=== PATIENT | male | born 1980 | race Caucasian/White ===

== ENCOUNTER 2021-08-14 12:48 | Inpatient (IN) | payer OTHER ==
[2021-08-14 13:12] VITALS: BMI 35.2
[2021-08-14] MEDS ORDERED: MAGNESIUM CITRATE 300 ML BOTTLE PO PRN (14:50)
[2021-08-14] MEDS ORDERED: MAG HYDROX/AL HYDROX/SIMETH 30 ML UNIT-DOSE CUP PO PRN (14:50)
[2021-08-14] MEDS ORDERED: MAGNESIUM HYDROX 2400MG/30ML ORAL SUSPENSION 30 ML CUP PO PRN (14:50)
[2021-08-14] MEDS ORDERED: guaiFENesin 200 MG/10 ML 10 ML UNIT-DOSE CUPS PO PRN (14:50)
[2021-08-14] MEDS ORDERED: P-EPHED 60MG/TRIPROLIDI 2.5MG TABLET PO PRN (14:50)
[2021-08-14] MEDS ORDERED: LOPERAMIDE HCL 2 MG CAPSULE PO PRN (14:50)
[2021-08-14] MEDS ORDERED: TUBERCULIN PPD 5 TU/0.1ML VIAL ID ONE (21:47)
[2021-08-14] MEDS: THIAMINE HCL 100 MG TABLET (FP) PO SCH (21:49)
[2021-08-14] MEDS: VENLAFAXINE HCL 75 MG E.R. CAPSULES PO SCH (21:49)
[2021-08-14] MEDS: hydrOXYzine PAMOATE 25 MG CAPSULE (FP) PO SCH ×2 (21:49→22:13)
[2021-08-14] MEDS: MELATONIN 5 MG TABLETS PO SCH (21:49)
[2021-08-14] MEDS: GABAPENTIN 300 MG CAPSULE PO SCH (21:50)
[2021-08-14] MEDS ORDERED: ACAMPROSATE CALCIUM 333 MG TABLET.DR PO SCH (22:00)
[2021-08-15] MEDS: IBUPROFEN 400 MG TABLET (FP) PO PRN (02:42)
[2021-08-15] MEDS: hydrOXYzine PAMOATE 25 MG CAPSULE (FP) PO SCH ×5 (06:48→21:54)
[2021-08-15] MEDS: VENLAFAXINE HCL 75 MG E.R. CAPSULES PO SCH (09:12)
[2021-08-15] MEDS: PRENATAL VITAMINS W/ FOLIC ACID TABLET (FP) PO SCH (09:12)
[2021-08-15] MEDS: amLODIPine BESYLATE 5 MG TABLET (FP) PO SCH (09:12)
[2021-08-15 09:56] LABS: HEMATOCRIT 30.9 % (35.4-49); HEMOGLOBIN 10.5 GM/dL (11.7-16.9); MCH 32.9 pg (25.7-33.7); MEAN CELL VOLUME 96.6 fl (80-96); MEAN PLT VOLUME 10.3 fl (7.5-11.1); PLATELET COUNT 80 10^3/uL (134-434); RDW 16.3 % (11.9-15.9); WHITE BLOOD COUNT 6.4 K/mm3 (4.0-10.0)
[2021-08-15] MEDS ORDERED: PALIPERIDONE 9 MG PO SCH (10:00)
[2021-08-15 10:05] LABS: CALCIUM 8.1 mg/dL (8.5-10.1)
[2021-08-15 10:09] LABS: BLOOD UREA NITROGEN 11.1 mg/dL (7-18); CREATININE 0.5 mg/dL (0.55-1.3)
[2021-08-15 10:11] LABS: TOT PROT 6.1 g/dl (6.4-8.2)
[2021-08-15 10:36] LABS: SYPHILIS W/ RPR CONF NON-REACTIVE (NONREACTIVE)
[2021-08-15 10:50] LABS: EPI CELLS 4 /uL (0-25.1); HYALINE CASTS 0 /uL (0-3.1); PH,URINE 7.5 (5.0-8.0); URINE APPEARANCE CLEAR; URINE BACTERIA 9 /uL (0-1359); URINE BILIRUBIN NEGATIVE (NEGATIVE); URINE COLOR YELLOW; URINE GLUCOSE (UA) NEGATIVE (NEGATIVE); URINE KETONE NEGATIVE (NEGATIVE); URINE LEUK ESTERASE NEGATIVE (NEGATIVE); URINE NITRITE NEGATIVE (NEGATIVE); URINE PROTEIN NEGATIVE (NEGATIVE); URINE RBC 101 /uL (0-23.9); URINE WBC 4 /uL (0-25.8)
[2021-08-15] MEDS: risperiDONE 1 MG TABLET PO SCH ×2 (11:30→21:52)
[2021-08-15] MEDS: TOPIRAMATE 25 MG TABLET PO SCH ×2 (14:02→21:52)
[2021-08-15] MEDS: GABAPENTIN 300 MG CAPSULE PO SCH (21:52)
[2021-08-15] MEDS: MELATONIN 5 MG TABLETS PO SCH (21:53)
[2021-08-15] MEDS: THIAMINE HCL 100 MG TABLET (FP) PO SCH (21:53)
[2021-08-15] MEDS: MIRTAZAPINE 15 MG TABLET (FP) PO SCH (21:54)
[2021-08-16] MEDS: IBUPROFEN 400 MG TABLET (FP) PO PRN (00:52)
[2021-08-16] MEDS: hydrOXYzine PAMOATE 25 MG CAPSULE (FP) PO SCH ×5 (06:55→21:45)
[2021-08-16] MEDS: amLODIPine BESYLATE 5 MG TABLET (FP) PO SCH (10:00)
[2021-08-16] MEDS: TOPIRAMATE 25 MG TABLET PO SCH ×2 (10:00→21:45)
[2021-08-16] MEDS: PRENATAL VITAMINS W/ FOLIC ACID TABLET (FP) PO SCH (10:00)
[2021-08-16] MEDS: VENLAFAXINE HCL 75 MG E.R. CAPSULES PO SCH (10:01)
[2021-08-16] MEDS: risperiDONE 1 MG TABLET PO SCH (10:01)
[2021-08-16] MEDS ORDERED: risperiDONE 1 MG TABLET PO ONE (11:00)
[2021-08-16] MEDS: LACTULOSE 20 GM/30 ML UDC (FOR ORAL USE ONLY) PO SCH ×2 (14:41→21:45)
[2021-08-16] MEDS: GABAPENTIN 300 MG CAPSULE PO SCH (21:45)
[2021-08-16] MEDS: THIAMINE HCL 100 MG TABLET (FP) PO SCH (21:45)
[2021-08-16] MEDS: MELATONIN 5 MG TABLETS PO SCH (21:45)
[2021-08-16] MEDS: MIRTAZAPINE 15 MG TABLET (FP) PO SCH (21:45)
[2021-08-16] MEDS: risperiDONE 2 MG TABLET PO SCH (21:46)
[2021-08-17] MEDS: IBUPROFEN 400 MG TABLET (FP) PO PRN ×2 (04:23→13:38)
[2021-08-17] MEDS: LACTULOSE 20 GM/30 ML UDC (FOR ORAL USE ONLY) PO SCH ×3 (06:36→21:17)
[2021-08-17] MEDS: hydrOXYzine PAMOATE 25 MG CAPSULE (FP) PO SCH ×5 (06:37→21:18)
[2021-08-17] MEDS: FERROUS SO4 325 MG TABLET (FP) PO SCH (09:51)
[2021-08-17] MEDS: amLODIPine BESYLATE 5 MG TABLET (FP) PO SCH (09:51)
[2021-08-17] MEDS: TOPIRAMATE 25 MG TABLET PO SCH ×2 (09:51→21:18)
[2021-08-17] MEDS: risperiDONE 2 MG TABLET PO SCH ×2 (09:51→21:18)
[2021-08-17] MEDS: PRENATAL VITAMINS W/ FOLIC ACID TABLET (FP) PO SCH (09:51)
[2021-08-17] MEDS: VENLAFAXINE HCL 75 MG E.R. CAPSULES PO SCH (09:52)
[2021-08-17] MEDS: THIAMINE HCL 100 MG TABLET (FP) PO SCH (21:18)
[2021-08-17] MEDS: MIRTAZAPINE 15 MG TABLET (FP) PO SCH (21:18)
[2021-08-17] MEDS: MELATONIN 5 MG TABLETS PO SCH (21:18)
[2021-08-17] MEDS: GABAPENTIN 300 MG CAPSULE PO SCH (21:18)
[2021-08-18] MEDS: IBUPROFEN 400 MG TABLET (FP) PO PRN ×2 (05:06→15:53)
[2021-08-18] MEDS: hydrOXYzine PAMOATE 25 MG CAPSULE (FP) PO SCH ×5 (05:08→21:30)
[2021-08-18] MEDS: LACTULOSE 20 GM/30 ML UDC (FOR ORAL USE ONLY) PO SCH ×3 (05:08→21:30)
[2021-08-18] MEDS: PRENATAL VITAMINS W/ FOLIC ACID TABLET (FP) PO SCH (10:09)
[2021-08-18] MEDS: TOPIRAMATE 25 MG TABLET PO SCH ×2 (10:09→21:30)
[2021-08-18] MEDS: FERROUS SO4 325 MG TABLET (FP) PO SCH (10:09)
[2021-08-18] MEDS: risperiDONE 2 MG TABLET PO SCH ×2 (10:09→21:30)
[2021-08-18] MEDS: amLODIPine BESYLATE 5 MG TABLET (FP) PO SCH (10:09)
[2021-08-18] MEDS: VENLAFAXINE HCL 75 MG E.R. CAPSULES PO SCH (10:09)
[2021-08-18] MEDS: LIDOCAINE 5% TOPICAL PATCH TP SCH (12:42)
[2021-08-18] MEDS: MIRTAZAPINE 15 MG TABLET (FP) PO SCH (21:30)
[2021-08-18] MEDS: THIAMINE HCL 100 MG TABLET (FP) PO SCH (21:30)
[2021-08-18] MEDS: MELATONIN 5 MG TABLETS PO SCH (21:30)
[2021-08-18] MEDS: GABAPENTIN 300 MG CAPSULE PO SCH (21:30)
[2021-08-18] MEDS: LIDOCAINE PATCH REMOVAL MC SCH (21:31)
[2021-08-19] MEDS: hydrOXYzine PAMOATE 25 MG CAPSULE (FP) PO SCH ×5 (06:35→21:08)
[2021-08-19] MEDS: IBUPROFEN 400 MG TABLET (FP) PO PRN ×2 (06:35→13:12)
[2021-08-19] MEDS: LACTULOSE 20 GM/30 ML UDC (FOR ORAL USE ONLY) PO SCH ×3 (06:35→21:08)
[2021-08-19] MEDS: amLODIPine BESYLATE 5 MG TABLET (FP) PO SCH (10:01)
[2021-08-19] MEDS: TOPIRAMATE 25 MG TABLET PO SCH ×2 (10:01→21:09)
[2021-08-19] MEDS: LIDOCAINE 5% TOPICAL PATCH TP SCH (10:01)
[2021-08-19] MEDS: FERROUS SO4 325 MG TABLET (FP) PO SCH (10:01)
[2021-08-19] MEDS: risperiDONE 2 MG TABLET PO SCH ×2 (10:01→21:08)
[2021-08-19] MEDS: PRENATAL VITAMINS W/ FOLIC ACID TABLET (FP) PO SCH (10:01)
[2021-08-19] MEDS: VENLAFAXINE HCL 75 MG E.R. CAPSULES PO SCH (10:02)
[2021-08-19 10:44] LABS: ALBUMIN 2.2 g/dl (3.4-5.0); BLOOD UREA NITROGEN 10.5 mg/dL (7-18); CALCIUM 8.2 mg/dL (8.5-10.1)
[2021-08-19 10:47] LABS: CREATININE 0.5 mg/dL (0.55-1.3)
[2021-08-19 10:49] LABS: BILIRUBIN,TOTAL 1.6 mg/dL (0.2-1)
[2021-08-19 10:50] LABS: TOT PROT 6.5 g/dl (6.4-8.2)
[2021-08-19] MEDS: GABAPENTIN 300 MG CAPSULE PO SCH (21:08)
[2021-08-19] MEDS: MELATONIN 5 MG TABLETS PO SCH (21:08)
[2021-08-19] MEDS: THIAMINE HCL 100 MG TABLET (FP) PO SCH (21:08)
[2021-08-19] MEDS: MIRTAZAPINE 15 MG TABLET (FP) PO SCH (21:08)
[2021-08-19] MEDS: LIDOCAINE PATCH REMOVAL MC SCH (21:09)
[2021-08-20] MEDS: IBUPROFEN 400 MG TABLET (FP) PO PRN ×3 (00:48→22:07)
[2021-08-20] MEDS: LACTULOSE 20 GM/30 ML UDC (FOR ORAL USE ONLY) PO SCH ×5 (06:21→22:05)
[2021-08-20] MEDS: hydrOXYzine PAMOATE 25 MG CAPSULE (FP) PO SCH ×5 (06:21→22:06)
[2021-08-20] MEDS: amLODIPine BESYLATE 5 MG TABLET (FP) PO SCH (10:21)
[2021-08-20] MEDS: TOPIRAMATE 25 MG TABLET PO SCH ×2 (10:22→22:06)
[2021-08-20] MEDS: PRENATAL VITAMINS W/ FOLIC ACID TABLET (FP) PO SCH (10:22)
[2021-08-20] MEDS: LIDOCAINE 5% TOPICAL PATCH TP SCH (10:22)
[2021-08-20] MEDS: FERROUS SO4 325 MG TABLET (FP) PO SCH (10:22)
[2021-08-20] MEDS: VENLAFAXINE HCL 75 MG E.R. CAPSULES PO SCH (10:22)
[2021-08-20] MEDS: risperiDONE 2 MG TABLET PO SCH ×2 (10:22→22:05)
[2021-08-20] MEDS: THIAMINE HCL 100 MG TABLET (FP) PO SCH (22:05)
[2021-08-20] MEDS: MIRTAZAPINE 15 MG TABLET (FP) PO SCH (22:05)
[2021-08-20] MEDS: MELATONIN 5 MG TABLETS PO SCH (22:06)
[2021-08-20] MEDS: GABAPENTIN 300 MG CAPSULE PO SCH (22:06)
[2021-08-20] MEDS: LIDOCAINE PATCH REMOVAL MC SCH (22:06)
[2021-08-21] MEDS: IBUPROFEN 400 MG TABLET (FP) PO PRN ×2 (04:42→13:37)
[2021-08-21] MEDS: hydrOXYzine PAMOATE 25 MG CAPSULE (FP) PO SCH ×5 (06:19→21:49)
[2021-08-21] MEDS: amLODIPine BESYLATE 5 MG TABLET (FP) PO SCH (09:59)
[2021-08-21] MEDS: PRENATAL VITAMINS W/ FOLIC ACID TABLET (FP) PO SCH (09:59)
[2021-08-21] MEDS: LACTULOSE 20 GM/30 ML UDC (FOR ORAL USE ONLY) PO SCH ×4 (09:59→21:51)
[2021-08-21] MEDS: FERROUS SO4 325 MG TABLET (FP) PO SCH (09:59)
[2021-08-21] MEDS: risperiDONE 2 MG TABLET PO SCH ×2 (09:59→21:50)
[2021-08-21] MEDS: VENLAFAXINE HCL 75 MG E.R. CAPSULES PO SCH (09:59)
[2021-08-21] MEDS: TOPIRAMATE 25 MG TABLET PO SCH ×2 (09:59→21:52)
[2021-08-21] MEDS: LIDOCAINE 5% TOPICAL PATCH TP SCH (10:00)
[2021-08-21] MEDS: GABAPENTIN 300 MG CAPSULE PO SCH (21:49)
[2021-08-21] MEDS: MIRTAZAPINE 15 MG TABLET (FP) PO SCH (21:50)
[2021-08-21] MEDS: LIDOCAINE PATCH REMOVAL MC SCH (21:51)
[2021-08-21] MEDS: MELATONIN 5 MG TABLETS PO SCH (21:51)
[2021-08-21] MEDS: THIAMINE HCL 100 MG TABLET (FP) PO SCH (21:52)
[2021-08-22] MEDS: IBUPROFEN 400 MG TABLET (FP) PO PRN ×2 (01:11→08:49)
[2021-08-22] MEDS: hydrOXYzine PAMOATE 25 MG CAPSULE (FP) PO SCH ×5 (05:56→21:51)
[2021-08-22] MEDS: PRENATAL VITAMINS W/ FOLIC ACID TABLET (FP) PO SCH (10:07)
[2021-08-22] MEDS: amLODIPine BESYLATE 5 MG TABLET (FP) PO SCH (10:07)
[2021-08-22] MEDS: risperiDONE 2 MG TABLET PO SCH ×2 (10:07→21:51)
[2021-08-22] MEDS: VENLAFAXINE HCL 75 MG E.R. CAPSULES PO SCH (10:08)
[2021-08-22] MEDS: TOPIRAMATE 25 MG TABLET PO SCH ×2 (10:08→21:51)
[2021-08-22] MEDS: LIDOCAINE 5% TOPICAL PATCH TP SCH (10:08)
[2021-08-22] MEDS: LACTULOSE 20 GM/30 ML UDC (FOR ORAL USE ONLY) PO SCH ×4 (10:08→21:52)
[2021-08-22] MEDS: FERROUS SO4 325 MG TABLET (FP) PO SCH (10:08)
[2021-08-22] MEDS: MIRTAZAPINE 15 MG TABLET (FP) PO SCH (21:51)
[2021-08-22] MEDS: GABAPENTIN 300 MG CAPSULE PO SCH (21:51)
[2021-08-22] MEDS: THIAMINE HCL 100 MG TABLET (FP) PO SCH (21:52)
[2021-08-22] MEDS: MELATONIN 5 MG TABLETS PO SCH (21:52)
[2021-08-22] MEDS: LIDOCAINE PATCH REMOVAL MC SCH (21:52)
[2021-08-23] MEDS: IBUPROFEN 400 MG TABLET (FP) PO PRN ×3 (00:56→19:26)
[2021-08-23] MEDS: hydrOXYzine PAMOATE 25 MG CAPSULE (FP) PO SCH ×2 (06:02→10:07)
[2021-08-23] MEDS: amLODIPine BESYLATE 5 MG TABLET (FP) PO SCH (10:07)
[2021-08-23] MEDS: PRENATAL VITAMINS W/ FOLIC ACID TABLET (FP) PO SCH (10:07)
[2021-08-23] MEDS: VENLAFAXINE HCL 75 MG E.R. CAPSULES PO SCH (10:07)
[2021-08-23] MEDS: LACTULOSE 20 GM/30 ML UDC (FOR ORAL USE ONLY) PO SCH ×4 (10:07→21:54)
[2021-08-23] MEDS: LIDOCAINE 5% TOPICAL PATCH TP SCH (10:07)
[2021-08-23] MEDS: FERROUS SO4 325 MG TABLET (FP) PO SCH (10:07)
[2021-08-23] MEDS: TOPIRAMATE 25 MG TABLET PO SCH ×2 (10:07→21:57)
[2021-08-23] MEDS: risperiDONE 2 MG TABLET PO SCH ×2 (10:07→21:55)
[2021-08-23] MEDS: LIDOCAINE PATCH REMOVAL MC SCH (21:54)
[2021-08-23] MEDS: GABAPENTIN 300 MG CAPSULE PO SCH (21:54)
[2021-08-23] MEDS: MIRTAZAPINE 15 MG TABLET (FP) PO SCH (21:54)
[2021-08-23] MEDS: THIAMINE HCL 100 MG TABLET (FP) PO SCH (21:56)
[2021-08-23] MEDS: MELATONIN 5 MG TABLETS PO SCH (21:57)
[2021-08-24] MEDS: IBUPROFEN 400 MG TABLET (FP) PO PRN (00:51)
[2021-08-24] MEDS ORDERED: PT OWN MED DRAWER 7, Y5N ONE (06:01)
[2021-08-24 06:58] VITALS: TEMP 99.1
[2021-08-24] MEDS: TOPIRAMATE 25 MG TABLET PO SCH (09:54)
[2021-08-24] MEDS: VENLAFAXINE HCL 75 MG E.R. CAPSULES PO SCH (09:54)
[2021-08-24] MEDS: FERROUS SO4 325 MG TABLET (FP) PO SCH (09:54)
[2021-08-24] MEDS: risperiDONE 2 MG TABLET PO SCH ×2 (09:54→23:55)
[2021-08-24] MEDS: LACTULOSE 20 GM/30 ML UDC (FOR ORAL USE ONLY) PO SCH ×4 (09:54→23:54)
[2021-08-24] MEDS: PRENATAL VITAMINS W/ FOLIC ACID TABLET (FP) PO SCH (09:54)
[2021-08-24] MEDS: LIDOCAINE 5% TOPICAL PATCH TP SCH (09:54)
[2021-08-24] MEDS: amLODIPine BESYLATE 5 MG TABLET (FP) PO SCH (09:54)
[2021-08-24 11:11] LABS: BLOOD UREA NITROGEN 9.8 mg/dL (7-18)
[2021-08-24 11:12] LABS: ALBUMIN 2.4 g/dl (3.4-5.0)
[2021-08-24 11:15] LABS: CREATININE 0.7 mg/dL (0.55-1.3)
[2021-08-24 11:16] LABS: BILIRUBIN,TOTAL 2.1 mg/dL (0.2-1); TOT PROT 6.6 g/dl (6.4-8.2)
[2021-08-24 11:29] LABS: BASO % 0.9 % (0-2.0); EOS % 3.4 % (0-4.5); HEMATOCRIT 31.9 % (35.4-49); HEMOGLOBIN 10.7 GM/dL (11.7-16.9); LYMPH % 19.5 % (8-40); MCH 32.5 pg (25.7-33.7); MCHC 33.6 g/dl (32.0-35.9); MEAN CELL VOLUME 96.9 fl (80-96); MEAN PLT VOLUME 10.1 fl (7.5-11.1); MONO % 7.2 % (3.8-10.2); PLATELET COUNT 77 10^3/uL (134-434); RBC 3.29 M/mm3 (4.00-5.60); RDW 18.1 % (11.9-15.9); WHITE BLOOD COUNT 6.5 K/mm3 (4.0-10.0)
[2021-08-24 11:39] LABS: INR 1.47 (0.83-1.09); PROTHROMBIN TIME (PATIENT) 17.3 SEC (9.7-13.0)
[2021-08-24 11:42] LABS: ACTIVATED PTT 38.2 SECONDS (25.2-36.5)
[2021-08-24 17:43] VITALS: BP 141/89; PULSE 97
[2021-08-24] MEDS ORDERED: MIRTAZAPINE 15 MG TABLET (FP) PO SCH (22:00)
[2021-08-24] MEDS: MELATONIN 5 MG TABLETS PO SCH (23:55)
[2021-08-24] MEDS: LIDOCAINE PATCH REMOVAL MC SCH (23:55)
[2021-08-24] MEDS: GABAPENTIN 300 MG CAPSULE PO SCH (23:55)
[2021-08-24] MEDS: THIAMINE HCL 100 MG TABLET (FP) PO SCH (23:56)
[2021-08-25] MEDS ORDERED: VENLAFAXINE HCL 37.5 MG E.R. CAPSULE PO SCH (10:00)
== END 2021-08-25 05:38 | disposition short-term general hospital (02) | DRG 772 ==
LOC: YASAS 12:48 → Y3W 14:07
PROVIDERS: ADMIT Allergy & Immunology; ATTEND Allergy & Immunology
PROC: HZ42ZZZ Group Counseling for Substance Abuse Treatment, Cognitive-Behavioral (ICD-10-PCS; principal; 2021-08-14)
DX: F10.20 Alcohol dependence, uncomplicated (principal); F32.3 Major depressive disorder, single episode, severe with psychotic features; F10.24 Alcohol dependence with alcohol-induced mood disorder; E72.20 Disorder of urea cycle metabolism, unspecified; G62.9 Polyneuropathy, unspecified; I10 Essential (primary) hypertension; K21.9 Gastro-esophageal reflux disease without esophagitis; K74.60 Unspecified cirrhosis of liver; Z56.0 Unemployment, unspecified; Z59.01 Sheltered homelessness
CPT/HCPCS: 36415; 80053; 81003; 82140; 85025; 85027; 85610; 85730; 86780; 86803; C9803; J2794; U0003; U0005

== ENCOUNTER 2021-08-24 18:36 | Inpatient (IN) | payer BC, OTHER ==
[2021-08-24] MEDS ORDERED: morphine CARPU-JECT 2 MG/1 ML DISP.SYRIN IVPUSH ONE (20:24)
[2021-08-24] MEDS ORDERED: morphine SULFATE 4 MG/ML VIAL ONE (20:39)
[2021-08-24 21:22] LABS: BASO % 0.3 % (0-2.0); EOS % 4.1 % (0-4.5); HEMATOCRIT 31.1 % (35.4-49); HEMOGLOBIN 10.6 GM/dL (11.7-16.9); LYMPH % 14.6 % (8-40); MCH 32.3 pg (25.7-33.7); MCHC 34.2 g/dl (32.0-35.9); MEAN CELL VOLUME 94.7 fl (80-96); MEAN PLT VOLUME 9.5 fl (7.5-11.1); MONO % 11.3 % (3.8-10.2); NEUT % 69.7 % (42.8-82.8); PLATELET COUNT 65 10^3/uL (134-434); RBC 3.29 M/mm3 (4.00-5.60); RDW 18.2 % (11.9-15.9); WHITE BLOOD COUNT 7.7 K/mm3 (4.0-10.0)
[2021-08-24 21:25] LABS: INR 1.49 (0.83-1.09); PROTHROMBIN TIME (PATIENT) 17.5 SEC (9.7-13.0)
[2021-08-24 21:27] LABS: ACTIVATED PTT 35.3 SECONDS (25.2-36.5)
[2021-08-24 21:36] LABS: EPI CELLS 3 /uL (0-25.1); HYALINE CASTS 1 /uL (0-3.1); URINE APPEARANCE CLEAR; URINE BACTERIA 3 /uL (0-1359); URINE BILIRUBIN NEGATIVE (NEGATIVE); URINE COLOR YELLOW; URINE GLUCOSE (UA) NEGATIVE (NEGATIVE); URINE KETONE NEGATIVE (NEGATIVE); URINE LEUK ESTERASE NEGATIVE (NEGATIVE); URINE NITRITE NEGATIVE (NEGATIVE); URINE PROTEIN TRACE (NEGATIVE); URINE RBC 190 /uL (0-23.9); URINE WBC 6 /uL (0-25.8)
[2021-08-24 21:37] LABS: CHLORIDE 116 mmol/L (98-107); SODIUM 144 mmol/L (136-145)
[2021-08-24 21:39] LABS: CALCIUM 8.7 mg/dL (8.5-10.1)
[2021-08-24 21:40] LABS: ALBUMIN 2.5 g/dl (3.4-5.0); ANION GAP 6 MMOL/L (8-16); BLOOD UREA NITROGEN 9.9 mg/dL (7-18); CO2 22 mmol/L (21-32); GLUCOSE,RANDOM 104 mg/dL (74-106); LIPASE 139 U/L (73-393)
[2021-08-24 21:42] LABS: CREATININE 0.5 mg/dL (0.55-1.3)
[2021-08-24 21:43] LABS: PHOSPHOROUS 4.3 mg/dL (2.5-4.9); SGOT/AST 62 U/L (15-37); SGPT/ALT 45 U/L (13-61)
[2021-08-24 21:44] LABS: BILIRUBIN,TOTAL 1.8 mg/dL (0.2-1); TOT PROT 6.7 g/dl (6.4-8.2)
[2021-08-24 21:45] LABS: ALK PHOS 230 U/L (45-117)
[2021-08-25] MEDS ORDERED: SODIUM CHLORIDE 0.9% 500 ML INFUS.BAG IV ONE (01:15)
[2021-08-25] MEDS ORDERED: CIPROFLOXACIN 400 MG/D5W 400 MG/200 ML IVPB IVPB ONE (01:17)
[2021-08-25] MEDS ORDERED: CEFEPIME HCL/D5W 2 GM/50 ML BAG IVPB ONE (01:32)
[2021-08-25] MEDS ORDERED: morphine CARPU-JECT 4 MG/1 ML DISP.SYRIN IVPUSH ONE (01:40)
[2021-08-25] MEDS ORDERED: CEFEPIME 2 GM/100 ML BAG IVPB ONE (01:59)
[2021-08-25] MEDS ORDERED: morphine SULFATE 4 MG/ML VIAL ONE (01:59)
[2021-08-25] MEDS ORDERED: morphine CARPU-JECT 8 MG/1 ML DISP.SYRIN IVPUSH PRN (04:26)
[2021-08-25] MEDS: SODIUM CHLORIDE 1,000 ML IV SCH ×2 (05:00→10:05)
[2021-08-25] MEDS: LACTULOSE 20 GM/30 ML UDC (FOR ORAL USE ONLY) PO SCH ×2 (06:05→13:17)
[2021-08-25] MEDS ORDERED: PNEUMOC 13-VAL CONJ-DIP CRM/PF 0.5 ML DISP.SYRIN IM ONE (06:23)
[2021-08-25 06:43] VITALS: BMI 34.7
[2021-08-25] MEDS: morphine SULFATE 4 MG/ML VIAL IVPUSH PRN ×3 (08:41→21:06)
[2021-08-25 08:53] LABS: BASO % 0.6 % (0-2.0); EOS % 4.7 % (0-4.5); HEMATOCRIT 32.4 % (35.4-49); LYMPH % 20.1 % (8-40); MCH 32.2 pg (25.7-33.7); MCHC 33.9 g/dl (32.0-35.9); MONO % 11.6 % (3.8-10.2); PLATELET COUNT 64 10^3/uL (134-434); RBC 3.42 M/mm3 (4.00-5.60); RDW 18.5 % (11.9-15.9)
[2021-08-25 09:25] LABS: ALBUMIN 2.6 g/dl (3.4-5.0); BLOOD UREA NITROGEN 8.2 mg/dL (7-18); CALCIUM 8.5 mg/dL (8.5-10.1); MAGNESIUM 1.9 mg/dL (1.8-2.4)
[2021-08-25 09:26] LABS: CREATININE 0.5 mg/dL (0.55-1.3)
[2021-08-25 09:28] LABS: BILIRUBIN,TOTAL 2.6 mg/dL (0.2-1); PHOSPHOROUS 3.3 mg/dL (2.5-4.9)
[2021-08-25 09:29] LABS: IRON SERUM 246 ug/dL (50-175)
[2021-08-25 09:30] LABS: TOTAL IRON BINDING CAPACITY 250 ug/dL (250-450)
[2021-08-25] MEDS ORDERED: PIPERACILLIN/TAZOBACTAM 3.375 GM VIAL IVPB ONE ×2 (09:58→17:03)
[2021-08-25] MEDS ORDERED: DEXTROSE 5%-WATER - 50 ML IVPB ONE ×2 (09:58→17:03)
[2021-08-25] MEDS ORDERED: FOLIC ACID 1 MG TABLET (FP) PO SCH (10:00)
[2021-08-25] MEDS ORDERED: PNEUMOCOCCAL 23 VACCINE 0.5 ML VIAL IM ONE (10:00)
[2021-08-25] MEDS ORDERED: THIAMINE HCL 100 MG TABLET (FP) PO SCH (10:00)
[2021-08-25] MEDS ORDERED: GABAPENTIN 300 MG CAPSULE PO SCH (10:00)
[2021-08-25] MEDS: PIPERACILLIN/TAZOB 3.375 GM 3.375 GM in DEXTROSE 5%-WATER - 50 ML IVPB SCH ×2 (10:05→17:49)
[2021-08-25 21:43] VITALS: BP 139/88; PULSE 92; TEMP 98
[2021-08-26] MEDS ORDERED: PIPERACILLIN/TAZOB 3.375 GM 3.375 GM in DEXTROSE 5%-WATER - 50 ML IVPB SCH (10:00)
== END 2021-08-25 21:44 | disposition short-term general hospital (02) | DRG 446 ==
LOC: JER 18:36 → JERBED 08-25 01:26 → J6S 08-25 05:41
PROVIDERS: ADMIT Internal Medicine
DX: K80.00 Calculus of gallbladder with acute cholecystitis without obstruction (principal); K70.30 Alcoholic cirrhosis of liver without ascites; E66.9 Obesity, unspecified; Z68.34 Body mass index [BMI] 34.0-34.9, adult; I10 Essential (primary) hypertension; F10.20 Alcohol dependence, uncomplicated; F41.8 Other specified anxiety disorders; K21.9 Gastro-esophageal reflux disease without esophagitis
CPT/HCPCS: 36415; 70450-TC; 71260-TC; 74177-TC; 74181-TC; 76705-TC; 80053; 81003; 82140; 82248; 82272; 82550; 82728; 83540; 83550; 83605; 83690; 83735; 84100; 84484; 85025; 85045; 85610; 85730; 86850; 86900; 86901; 87040; 87086; 87186; 93005; 93010; 97116-GP; 97162-GP; 99285-25; C9803; Q9967; U0003; U0005